=== PATIENT | female | born 1935 ===

== ENCOUNTER 2019-08-15 14:34 | Inpatient (IN) | payer BC ==
[~2019-08-15] VITALS: Ht 152.4 cm; Wt 74.8 kg
--- NOTE | 2019-08-15 14:00 | NUR ---
PATIENT ADMITTED TO UNIT, CAME FROM HOME, AND ASSISTED TO ROOM VIA WHEELCHAIR. AND DAUGHTER CAME WITH PATIENT. PATIENT IS ALERT AND ORIENTED X4. ABLE TO MAKE NEEDS KNOWN. PATIENT WITH NO SOB, COUGH, CONGESTION, OR RESPIRATORY DISTRESS. NO COMPLAINTS OF PAIN AT THIS TIME. ORIENTED TO ROOM, BED, AND CONTROLS. PATIENT IS HARD OF HEARING, HAS BILATERAL HEARING AIDS ON. PATIENT S/P LUMBAR DECOMPRESSION SURGERY PERFORMED AT [facility]. PATIENT WITH BACK BRACE ON, BODY CHECK DONE. PATIENT OBSERVED WITH STERI STRIPS ON LOWER BACK INCISION SITE, COVERED WITH DRY DRESSING. NO DRAINAGE OR BLEEDING NOTED. REPLACED DRY DRESSING, INTACT. PURPLISH DISCOLORATION AT RIGHT BUTTOCK. BILATERAL ANKLES WITH NON PITTING EDEMA. BELONGINGS CHECKED. HOME MEDICATIONS NOTED AND BROUGHT TO PHARMACY. DR SHIELDS AND CIRILO COVINGTON MADE AWARE OF PATIENT'S ADMISSION AND MEDICATIONS RECONCILED. KEPT CALL LIGHT WITHIN REACH. NEEDS ANTICIPATED AND ATTENDED. WILL CONTINUE TO MONITOR PATIENT.
[2019-08-15] MEDS ORDERED: MAGNESIUM HYDROXIDE 30 ML LIQUID UDC PO PRN (14:45)
[2019-08-15] MEDS ORDERED: Z GUARD REMEDY PASTE 57 GM TUBE TOP PRN (14:45)
[2019-08-15] MEDS ORDERED: DIPH25CA83 PO (15:26)
[2019-08-15] MEDS ORDERED: ENOX40DI SQ (15:26)
[2019-08-15] MEDS ORDERED: CYCL10TA9 PO (15:26)
[2019-08-15] MEDS ORDERED: DICY10CA13 PO (15:26)
[2019-08-15] MEDS ORDERED: PANT40TA2 PO (15:26)
[2019-08-15] MEDS ORDERED: HYDR-3326 PO (15:26)
[2019-08-15] MEDS ORDERED: ESOM40CA PO (15:26)
[2019-08-15] MEDS ORDERED: ALBU8.5H8 IH (15:26)
[2019-08-15] MEDS ORDERED: GUAI600T53 PO (15:26)
[2019-08-15] MEDS ORDERED: DILT240C88 PO (15:26)
[2019-08-15] MEDS ORDERED: BUTA1CAP17 PO (15:26)
[2019-08-15] MEDS ORDERED: LEVO112T2 PO (15:26)
[2019-08-15] MEDS ORDERED: GABA-532 PO (15:26)
[2019-08-15] MEDS ORDERED: FLUT1DIS28 IH (15:26)
[2019-08-15 17:24] VITALS: BP 132/68
[2019-08-15] MEDS ORDERED: BUTALBITAL PO PRN (18:45)
[2019-08-15] MEDS ORDERED: Medication Not On Formulary EA (Diphenhydramine Hcl (Benadryl) 25 MG) PO SCH (18:45)
[2019-08-15] MEDS ORDERED: FLUTICASONE/SALMETEROL 250/50 INHALER IH SCH (18:45)
[2019-08-15] MEDS ORDERED: ALBUTEROL SULFATE 8 GM HFA.AER.AD IH SCH (18:45)
[2019-08-15] MEDS ORDERED: ASPIRIN PO PRN (18:45)
[2019-08-15] MEDS ORDERED: CAFFEINE PO PRN (18:45)
[2019-08-15] MEDS ORDERED: CYCLOBENZAPRINE HCL 10 MG TABLET PO PRN (18:45)
[2019-08-15] MEDS ORDERED: ALBUTEROL SULFATE 2.5 MG/3 ML NEBU NEB PRN (19:00)
[2019-08-15] MEDS ORDERED: diphenhydrAMINE 25 MG CAP PO PRN (19:00)
--- NOTE | 2019-08-15 19:00 | NUR ---
Received patient awake, sitting in a chair inside her room. Alert and able to verbalized needs, ATKA with bilateral hearing aid in used. Ambulatory with FWW with standby assist/1 person assist. Safety precaution and fall prevention maintained. Continue care as planned.
[2019-08-15 19:44] VITALS: BP 137/65
[2019-08-15] MEDS: GABAPENTIN 100 MG CAPSULE PO SCH (20:05)
[2019-08-15] MEDS: DOCUSATE SODIUM 100 MG CAPSULE PO SCH (20:05)
[2019-08-15] MEDS: DICYCLOMINE HCL 10 MG CAPSULE PO SCH (20:05)
[2019-08-15] MEDS: GUAIFENESIN LA 600 MG TABLET.SA PO SCH (20:06)
--- NOTE | 2019-08-16 02:47 | NUR ---
Screaming for abdominal cramps. Assisted to the bathroom, passing gas only. Ambulated to the hallways, burping several times. No urge to defecate this time. Assisted back to bed. Made comfortable. Refused any pain meds offered. Will continue to monitor.
[2019-08-16 06:03] VITALS: BP 145/65
--- NOTE | 2019-08-16 06:09 | NUR ---
Shift End Report: Vs stable. Bathroom almost every 2 hours. Denied any bladder discomfort. Assisted to the bathroom all the time to avoid falls/injury. Patient not steady on her feet yet, All needs attended and met. Patient quite needy and demanding. Continue current rehab plan of care.
[2019-08-16] MEDS: PANTOPRAZOLE SODIUM 40 MG TABLET.DR PO SCH (06:16)
[2019-08-16] MEDS: LEVOTHYROXINE SODIUM 112 MCG TABLET PO SCH (06:16)
[2019-08-16] MEDS: GABAPENTIN 100 MG CAPSULE PO SCH ×3 (08:19→16:15)
[2019-08-16] MEDS: GUAIFENESIN LA 600 MG TABLET.SA PO SCH ×2 (08:19→16:15)
[2019-08-16] MEDS: DICYCLOMINE HCL 10 MG CAPSULE PO SCH ×3 (08:19→16:15)
[2019-08-16] MEDS: DILTIAZEM HCL CD 240 MG CAP.SR.24H PO SCH (08:20)
[2019-08-16] MEDS: ENOXAPARIN SODIUM 40 MG/0.4 ML DISP.SYRIN SQ SCH (08:24)
[2019-08-16 08:30] VITALS: BP 142/70
[2019-08-16] MEDS ORDERED: SALMETEROL IH SCH (09:00)
[2019-08-16] MEDS ORDERED: Medication Not On Formulary EA (Esomeprazole Mag Trihydrate (Nexium) 40 MG) PO SCH (09:00)
[2019-08-16] MEDS ORDERED: FLUTICASONE/VILANTEROL 1 EACH BLST.W.DEV INH SCH (09:00)
[2019-08-16] MEDS ORDERED: FLUTICASONE IH SCH (09:00)
[2019-08-16] MEDS: HYDROCODONE/APAP 5-325MG TABLET PO PRN ×2 (09:03→22:06)
--- NOTE | 2019-08-16 11:16 | NUR ---
PATIENT IS UP ON CHAIR, ALERT AND VERBALLY RESPONSIVE. CAN MAKE NEEDS KNOWN. PATIENT STILL WITH BILATERAL ANKLE NON PITTING EDEMA. BILATERAL ANKLES/ FEET ELEVATED. PATIENT HAS BACK BRACE ON, DRY DRESSING ON LOWER BACK INCISION SITE DRY AND INTACT WITH NO S/S COMPLICATIONS. RECEIVED DUE MEDICATIONS, TOLERATED WELL. PATIENT PARTICIPATED IN REHAB SERVICES, PRE-MEDICATED WITH NORCO 5/325MG ORDERED AND TOLERATED ACTIVITY WELL. VS STABLE. CALL LIGHT AND PERSONAL BELONGINGS WITHIN REACH. WILL CONTINUE PAIN MANAGEMENT. WILL CONTINUE TO MONITOR PATIENT. ALL NEEDS ATTENDED.
[2019-08-16] MEDS: FLUTICASONE/VILANTEROL 1 EACH BLST.W.DEV INH SCH (14:06)
[2019-08-16 15:23] VITALS: BP 137/57
[2019-08-16 19:55] VITALS: BP 139/59
[2019-08-16] MEDS: DOCUSATE SODIUM 100 MG CAPSULE PO SCH (20:00)
--- NOTE | 2019-08-16 21:00 | NUR ---
Received pt sitting on the chair at bedside. AAO x4. No acute distress noted. Denies pain/ discomfort. Pt is hard of hearing, has bilateral hearing aids. Back brace in place. Assisted to the bathroom using walker. Due meds given as ordered. Safety measures maintained. Call light and personal items within reach. Will continue to monitor.
[2019-08-17 05:44] VITALS: BP 145/66
[2019-08-17] MEDS: PANTOPRAZOLE SODIUM 40 MG TABLET.DR PO SCH (06:22)
[2019-08-17] MEDS: LEVOTHYROXINE SODIUM 112 MCG TABLET PO SCH (06:22)
[2019-08-17 08:05] VITALS: BP 134/59
[2019-08-17] MEDS: DICYCLOMINE HCL 10 MG CAPSULE PO SCH ×3 (08:15→17:04)
[2019-08-17] MEDS: ACETAMINOPHEN 325 MG TABLET PO PRN ×2 (08:15→19:51)
[2019-08-17] MEDS: DILTIAZEM HCL CD 240 MG CAP.SR.24H PO SCH (08:15)
[2019-08-17] MEDS: GABAPENTIN 100 MG CAPSULE PO SCH ×3 (08:15→17:04)
[2019-08-17] MEDS: GUAIFENESIN LA 600 MG TABLET.SA PO SCH ×2 (08:15→17:04)
[2019-08-17] MEDS: ENOXAPARIN SODIUM 40 MG/0.4 ML DISP.SYRIN SQ SCH (08:17)
[2019-08-17] MEDS: FLUTICASONE/VILANTEROL 1 EACH BLST.W.DEV INH SCH (08:17)
--- NOTE | 2019-08-17 11:06 | NUR ---
Received patient awake in wheelchair in stable condition. Continue therapy for ambulation, therapeutic exercises, endurance and strenght. not in distress. Continue pain management prior to therapy. tolerated well. will continue monitor
[2019-08-17 16:18] VITALS: BP 133/74
[2019-08-17 19:44] VITALS: BP 137/60
[2019-08-17] MEDS: DOCUSATE SODIUM 100 MG CAPSULE PO SCH (20:08)
--- NOTE | 2019-08-17 20:12 | NUR ---
Received pt sitting on the chair at bedside and watching tv. AAO x4. No acute distress noted. Denies pain/discomfort. Temp elevated 99.7 F. Cooling measures and Tylenol given. Wound dressing intact, no drainage or redness noted. Due med given as ordered. Safety measures maintained. Call light and personal items within reach. Will continue to monitor.
[2019-08-17] MEDS: HYDROCODONE/APAP 5-325MG TABLET PO PRN (21:45)
--- NOTE | 2019-08-17 21:51 | NUR ---
Pt's temp is now 98.5 F. Will continue to monitor.
[2019-08-18 05:16] VITALS: BP 143/69
[2019-08-18] MEDS: LEVOTHYROXINE SODIUM 112 MCG TABLET PO SCH (06:07)
[2019-08-18] MEDS: PANTOPRAZOLE SODIUM 40 MG TABLET.DR PO SCH (06:07)
[2019-08-18 07:30] VITALS: BP 147/68
--- NOTE | 2019-08-18 08:00 | NUR ---
PATIENT IS SITTING IN WHEELCHAIR, NO SOB,RESP EVEN NONLABORED, ALERT, ORIENTED X4,VERBALLY RESPONSIVE, NO DISTRESS NOTED.
[2019-08-18] MEDS: GABAPENTIN 100 MG CAPSULE PO SCH ×3 (08:30→17:27)
[2019-08-18] MEDS: GUAIFENESIN LA 600 MG TABLET.SA PO SCH ×2 (08:31→17:27)
[2019-08-18] MEDS: DICYCLOMINE HCL 10 MG CAPSULE PO SCH ×3 (08:32→17:27)
[2019-08-18] MEDS: DILTIAZEM HCL CD 240 MG CAP.SR.24H PO SCH (08:32)
[2019-08-18] MEDS: FLUTICASONE/VILANTEROL 1 EACH BLST.W.DEV INH SCH (08:33)
[2019-08-18] MEDS: ENOXAPARIN SODIUM 40 MG/0.4 ML DISP.SYRIN SQ SCH (08:38)
[2019-08-18] MEDS: HYDROCODONE/APAP 5-325MG TABLET PO PRN ×2 (08:40→20:56)
--- NOTE | 2019-08-18 13:17 | NUR ---
DR ARANGO IS AWARE ABOUT LOW GRADE TEMP, HOWEVER PATIENT IS ASYMPTOMATIC, AMBULATING WITH FWW WITH PT, OT. NO DISTRESS NOTED.
--- NOTE | 2019-08-18 14:36 | NUR ---
INDIVIDUALIZE OVERALL PLAN OF CARE
--- NOTE | 2019-08-18 15:45 | NUR ---
PATIENT INCISION SITE IS CLEAN AND DRY, NO DRAINAGE NOTED, STERI STRIPS ARE INTACT. PATIENT IS SITTING IN THE CHAIR, ALERT, ORIENTED X4, INDEPENDENT WITH ADLS, NO DISTRESS NOTED
[2019-08-18 17:46] VITALS: BP 148/61
--- NOTE | 2019-08-18 17:59 | NUR ---
PATIENT STATED SHE DOES NOT HAVE BM FOR TWO DAYS, OFFERED MILK OF MAGNESIUM ORDERED, PATIENT STATED "NO' OFFERED PRUNE JUICE, AGREED. PATIENT STATED SHE DOES NOT LIKE TO GO GO BED UNTIL PM, HOWEVER BRUSHED HER TEETH, IN GOWN, AND USED THE RESTROOM, SITTING IN CHAIR. NO DISTRESS NOTED.
--- NOTE | 2019-08-18 19:07 | NUR ---
PATIENT HAS MEDIUM BM
--- NOTE | 2019-08-18 19:40 | NUR ---
Received patient sitting in wheelchair. AAO x4. Not in acute distress or SOB. Able to make needs known. Hard of hearing using hearing aid. On room air. Complained of tolerable pain at this time. Physical assessment done. Fall prevention observed. Safety measures maintained. Bed in low and lock position, alarm on, side rails up x2 for safety. Call light and frequently used items within reach. Continue to monitor.
[2019-08-18 19:45] VITALS: BP 133/66
[2019-08-18] MEDS: DOCUSATE SODIUM 100 MG CAPSULE PO SCH (20:01)
--- NOTE | 2019-08-18 20:23 | NUR ---
Patient has low grade fever.Checked temperature two times: 99.3 F and 99.2 F. Patient is asymptomatic. Continue to monitor.
[2019-08-18] MEDS: ACETAMINOPHEN 325 MG TABLET PO PRN (22:42)
[2019-08-19 04:33] VITALS: BP 137/68
--- NOTE | 2019-08-19 04:36 | NUR ---
Administered Tylenol 650 mg @2242 last night because of pain in legs and lower back. Today morning temperature: 98.5 F. No other symptoms present. Continue to monitor.
[2019-08-19] MEDS: PANTOPRAZOLE SODIUM 40 MG TABLET.DR PO SCH (06:08)
[2019-08-19] MEDS: LEVOTHYROXINE SODIUM 112 MCG TABLET PO SCH (06:08)
--- NOTE | 2019-08-19 06:32 | NUR ---
End of the shift report: Patient was stable during the shift and had a good sleep last night. No acute distress or SOB noted. Complained of pain in her lower back, rated 5/10, Narco 5-325 mg administered and effective. On room air. VS checked and stable. Physical assessment done. Due medications administered and well tolerated. All needs attended promptly. Assisted patient to the bathroom as needed and kept patient clean and dry. Fall precaution observed. Safety measures maintained. Bed in lock and low position, side rails up x2 for safety. Call light and frequently used items within reach. Will continue monitor and endorse to the day shift nurse accordingly.
[2019-08-19] MEDS: ENOXAPARIN SODIUM 40 MG/0.4 ML DISP.SYRIN SQ SCH (09:11)
[2019-08-19] MEDS: GABAPENTIN 100 MG CAPSULE PO SCH ×3 (09:12→17:38)
[2019-08-19] MEDS: DICYCLOMINE HCL 10 MG CAPSULE PO SCH ×3 (09:12→17:38)
[2019-08-19] MEDS: FLUTICASONE/VILANTEROL 1 EACH BLST.W.DEV INH SCH (09:12)
[2019-08-19] MEDS: GUAIFENESIN LA 600 MG TABLET.SA PO SCH ×2 (09:12→17:38)
[2019-08-19] MEDS: DILTIAZEM HCL CD 240 MG CAP.SR.24H PO SCH (09:13)
[2019-08-19 10:20] VITALS: BP 110/70
[2019-08-19] MEDS: ACETAMINOPHEN 325 MG TABLET PO PRN (10:30)
[2019-08-19] MEDS ORDERED: CYCLOBENZAPRINE HCL 10 MG TABLET PO PRN (10:45)
--- NOTE | 2019-08-19 12:07 | NUR ---
PATIENT CONTINUE THERAPY FOR THERAPEUTIC EXERCISES. ONGOING PAIN MANAGEMENT PRIOR TO THERAPY AND IF NEEDED. STARTED FLEXERIL TID PRN FOR LEG CRAMPS. NO COMPLAINT OF THIS TIME. CONTINUE ON LOVENOX 40MG IM INJECTION DAILY FOR DVT PROPHYLAXIS.NO SIGNS AND SYMPTOMS OF BLEEDING NOTED. WILL CONTINUE MONITOR
--- NOTE | 2019-08-19 14:57 | NUR ---
INTERDISCIPLINARY TEAM CONFERENCE
[2019-08-19 19:24] VITALS: BP 114/53
--- NOTE | 2019-08-19 19:50 | NUR ---
Received patient awake in wheelchair, stable condition. Not in distress or SOB. Hard of hearing; using hearing aid. On room air; tolerating well. Patient is awake and alert x4. No complaints of pain at this moment. All current needs met and anticipated. Physical assessment done. Fall assessment done. Call light and frequently used items within reach. Will continue to monitor and give care.
[2019-08-19] MEDS: DOCUSATE SODIUM 100 MG CAPSULE PO SCH (20:05)
[2019-08-19 20:23] VITALS: BP 138/66
[2019-08-20 04:00] VITALS: BP 127/60
[2019-08-20] MEDS: LEVOTHYROXINE SODIUM 112 MCG TABLET PO SCH (06:01)
[2019-08-20] MEDS: PANTOPRAZOLE SODIUM 40 MG TABLET.DR PO SCH (06:01)
[2019-08-20 06:42] LABS: BASOPHILS # (AUTO) 0.1 K/uL (0.0-8.0); EOSINOPHILS # (AUTO) 0.3 K/uL (0.0-0.7); EOSINOPHILS % (AUTO) 3.7 % (0.0-7.0); HEMATOCRIT 25.6 % (31.2-41.9); HEMOGLOBIN 8.7 g/dL (10.9-14.3); LYMPHOCYTES # (AUTO) 2.7 K/uL (20.0-40.0); LYMPHOCYTES % (AUTO) 32.4 % (20.5-51.5); MEAN CORPUSCULAR HEMOGLOBIN 28.9 uug (24.7-32.8); MEAN CORPUSCULAR HGB CONC 34 g/dL (32.3-35.6); MONOCYTES # (AUTO) 0.8 K/uL (2.0-10.0); MONOCYTES % (AUTO) 9.1 % (0.0-11.0); NEUTROPHILS # (AUTO) 4.5 K/uL (1.8-8.9); NEUTROPHILS % (AUTO) 53.8 % (38.5-71.5); PLATELET COUNT (AUTO) 339 K/uL (179-408); RED BLOOD CELL COUNT(AUTO) 3.01 MIL/uL (3.63-4.92); WHITE BLOOD COUNT (AUTO) 8.4 K/uL (3.8-11.8)
[2019-08-20 07:30] LABS: BILIRUBIN,TOTAL 0.2 mg/dL (0.2-1.0); CREATININE 0.9 mg/dL (0.6-1.3); MAGNESIUM 2.1 mg/dL (1.8-2.4); PHOSPHOROUS 3.5 mg/dL (2.5-4.9); POTASSIUM 4.3 mmol/L (3.5-5.1); TOTAL PROTEIN, SERUM 6.2 g/dL (6.4-8.2)
[2019-08-20] MEDS: ENOXAPARIN SODIUM 40 MG/0.4 ML DISP.SYRIN SQ SCH (08:33)
[2019-08-20] MEDS: DILTIAZEM HCL CD 240 MG CAP.SR.24H PO SCH (08:34)
[2019-08-20] MEDS: GABAPENTIN 100 MG CAPSULE PO SCH ×3 (08:34→15:59)
[2019-08-20] MEDS: GUAIFENESIN LA 600 MG TABLET.SA PO SCH ×2 (08:36→15:58)
[2019-08-20] MEDS: DICYCLOMINE HCL 10 MG CAPSULE PO SCH ×3 (08:37→15:58)
[2019-08-20] MEDS: FLUTICASONE/VILANTEROL 1 EACH BLST.W.DEV INH SCH (08:38)
[2019-08-20 09:38] VITALS: BP 128/57
[2019-08-20 16:03] VITALS: BP 111/74
--- NOTE | 2019-08-20 19:40 | NUR ---
Received patient awake in wheelchair, stable condition. Not in distress or SOB. Hard of hearing; using hearing aid. On room air; tolerating well. Patient is alert and oriented x4. No complaints of pain at this moment. All current needs met and anticipated. Physical assessment done. Fall assessment done. Call light and frequently used items within reach. Will continue to monitor and give care.
[2019-08-20 19:48] VITALS: BP 125/52
[2019-08-20] MEDS: DOCUSATE SODIUM 100 MG CAPSULE PO SCH (20:51)
[2019-08-21 04:10] VITALS: BP 137/53
[2019-08-21] MEDS: LEVOTHYROXINE SODIUM 112 MCG TABLET PO SCH (06:31)
[2019-08-21] MEDS: PANTOPRAZOLE SODIUM 40 MG TABLET.DR PO SCH (06:31)
[2019-08-21] MEDS: GUAIFENESIN LA 600 MG TABLET.SA PO SCH ×2 (09:34→16:46)
[2019-08-21] MEDS: DICYCLOMINE HCL 10 MG CAPSULE PO SCH ×3 (09:34→16:45)
[2019-08-21] MEDS: DILTIAZEM HCL CD 240 MG CAP.SR.24H PO SCH (09:35)
[2019-08-21] MEDS: GABAPENTIN 100 MG CAPSULE PO SCH ×3 (09:35→16:46)
[2019-08-21] MEDS: FLUTICASONE/VILANTEROL 1 EACH BLST.W.DEV INH SCH (09:35)
[2019-08-21] MEDS: ENOXAPARIN SODIUM 40 MG/0.4 ML DISP.SYRIN SQ SCH (09:38)
[2019-08-21 18:35] VITALS: BP 133/67
--- NOTE | 2019-08-21 19:30 | NUR ---
Patient alert and oriented x 4. Sitting up in chair during assessment. No C/O pain or SOB at this time. Incision C/D/I at this time. Side rails up bilaterally for safety. Call light and frequently used items within reach. Will continue to monitor.
[2019-08-21 19:45] VITALS: BP 140/72
[2019-08-21] MEDS: HYDROCODONE/APAP 5-325MG TABLET PO PRN (20:11)
[2019-08-21] MEDS: DOCUSATE SODIUM 100 MG CAPSULE PO SCH (20:14)
[2019-08-22 05:52] VITALS: BP 115/85
[2019-08-22] MEDS: PANTOPRAZOLE SODIUM 40 MG TABLET.DR PO SCH (06:01)
[2019-08-22] MEDS: LEVOTHYROXINE SODIUM 112 MCG TABLET PO SCH (06:01)
[2019-08-22] MEDS: FLUTICASONE/VILANTEROL 1 EACH BLST.W.DEV INH SCH (08:31)
[2019-08-22] MEDS: GABAPENTIN 100 MG CAPSULE PO SCH (08:31)
[2019-08-22] MEDS: GUAIFENESIN LA 600 MG TABLET.SA PO SCH (08:31)
[2019-08-22] MEDS: DICYCLOMINE HCL 10 MG CAPSULE PO SCH (08:31)
[2019-08-22 08:32] VITALS: BP 115/85
[2019-08-22] MEDS: DILTIAZEM HCL CD 240 MG CAP.SR.24H PO SCH (08:32)
[2019-08-22] MEDS: ENOXAPARIN SODIUM 40 MG/0.4 ML DISP.SYRIN SQ SCH (08:34)
== END 2019-08-22 14:16 | disposition home health service (06) | DRG 561 ==
PROVIDERS: ADMIT Physical Medicine & Rehabilitation Pain Medicine; ATTEND Physical Medicine & Rehabilitation Pain Medicine
DX: Z47.89 Encounter for other orthopedic aftercare (principal); E03.9 Hypothyroidism, unspecified; F41.0 Panic disorder [episodic paroxysmal anxiety]; G43.909 Migraine, unspecified, not intractable, without status migrainosus; I10 Essential (primary) hypertension; K21.9 Gastro-esophageal reflux disease without esophagitis; M19.90 Unspecified osteoarthritis, unspecified site; M54.30 Sciatica, unspecified side; Z90.49 Acquired absence of other specified parts of digestive tract; Z90.710 Acquired absence of both cervix and uterus; M43.10 Spondylolisthesis, site unspecified; K59.00 Constipation, unspecified; J30.2 Other seasonal allergic rhinitis; Z85.828 Personal history of other malignant neoplasm of skin; Z88.5 Allergy status to narcotic agent; Z88.0 Allergy status to penicillin; Z88.8 Allergy status to other drugs, medicaments and biological substances; Z91.018 Allergy to other foods; E73.9 Lactose intolerance, unspecified
CPT/HCPCS: 36415; 83735; 84100; 85025; J1650; Q0163